=== PATIENT | female | born 1950 | race Asian ===

== ENCOUNTER 2016-11-22 16:43 | Emergency (ER) | payer OTHER ==
[~2016-11-22] VITALS: Ht 152.4 cm; Wt 159.0 kg
[~2016-11-22 16:43] MED LIST: ADV100 IH; ALBU8.5H IH; CALC-6 PO; FERR-72 PO; INSU100C3 SQ; INSU100C4 SQ
[2016-11-22] MEDS ORDERED: LOSA50TA37 PO (17:22)
[2016-11-22] MEDS ORDERED: METF500T4 PO (17:23)
[2016-11-22] MEDS ORDERED: AMLO-511 PO (17:23)
[2016-11-22] MEDS ORDERED: PROZ10 PO (17:23)
[2016-11-22] MEDS ORDERED: TRAM50TA4 PO (17:23)
[2016-11-22 17:32] LABS: GLUCOSE,POINT OF CARE 247 MG/DL (70-110)
[2016-11-22 19:48] LABS: BASOPHILS % (AUTO) 0.6 % (0.0-2.0); HEMATOCRIT 41.6 % (36-46); HEMOGLOBIN 13.5 g/dL (12.0-16.0); LYMPHOCYTES # (AUTO) 1.1 K/uL (1.0-4.8); LYMPHOCYTES % (AUTO) 11.4 % (22.0-44.0); MEAN CORPUSCULAR HGB CONC 32.5 G/dL (31.0-37.0); MEAN CORPUSCULAR VOLUME 86 fL (80-100); MONOCYTES # (AUTO) 1.2 K/uL (0.1-1.0); MONOCYTES % (AUTO) 12.6 % (2.0-9.0); NEUTROPHILS % (AUTO) 72.4 % (40.0-70.0); PLATELET COUNT (AUTO) 246 K/uL (150-450); RED BLOOD CELL COUNT(AUTO) 4.82 MIL/uL (4.00-5.20); WHITE BLOOD COUNT (AUTO) 9.6 K/uL (4.5-11.0)
[2016-11-22 19:55] LABS: INFLUENZA TYPE B POSITIVE FOR TYPE B (NEGATIVE)
[2016-11-22] MEDS ORDERED: OSELTAMIVIR PHOSPHATE 75 MG CAPSULE PO ONE (20:15)
[2016-11-22] MEDS ORDERED: BENZONATATE 100 MG CAPSULE PO ONE (20:15)
[2016-11-22] MEDS ORDERED: GuaiFENesin/CODEINE [SUGAR FREE] 200-20MG/10 ML SYRUP UDCUP PO ONE (20:15)
[2016-11-22] MEDS ORDERED: ACETAMINOPHEN 500 MG TABLET PO ONE (20:15)
[2016-11-22 20:34] LABS: CALCIUM, TOTAL 9.2 mg/dL (8.8-10.5); CREATININE 1.49 mg/dL (0.60-1.30); POTASSIUM 4.1 mmol/L (3.5-5.1)
[2016-11-22 20:56] VITALS: BP 127/66
== END 2016-11-22 20:57 | disposition home or self-care (01) ==
LOC: EMS 16:48
DX: J10.1 Influenza due to other identified influenza virus with other respiratory manifestations (principal); E11.65 Type 2 diabetes mellitus with hyperglycemia; E78.00 Pure hypercholesterolemia, unspecified; I10 Essential (primary) hypertension; J45.909 Unspecified asthma, uncomplicated; Z79.82 Long term (current) use of aspirin
CPT/HCPCS: 82962; 87804; 99285

== ENCOUNTER 2018-11-08 22:35 | Emergency (ER) | payer OTHER ==
[~2018-11-08] VITALS: Ht 152.4 cm; Wt 136.4 kg
[~2018-11-08 22:35] MED LIST changes: -ALBU8.5H IH; +ALBU8.5H8 IH; +AMLO-511 PO; +LOSA50TA64 PO; +METF-960 PO; +PROZ10 PO; +TRAM50TA4 PO
[2018-11-08 22:43] LABS: GLUCOSE,POINT OF CARE 227 MG/DL (70-110)
[2018-11-09] MEDS ORDERED: MethylPREDNISolone SOD SUCC 125 MG/2 ML VIAL IM ONE
[2018-11-09] MEDS ORDERED: ALBUTEROL SULFATE 2.5 MG/0.5 ML NEB SOLUTION NEB ONE
[2018-11-09] MEDS ORDERED: IPRATROPIUM BROMIDE 0.5 MG/2.5 ML NEB SOLUTION NEB ONE
[2018-11-09] MEDS ORDERED: GuaiFENesin/D-METHORPHAN [SUGAR-FREE] 200-20MG/10 ML SYRUP UDCUP PO ONE
[2018-11-09] MEDS ORDERED: ACETAMINOPHEN/CODEINE 300-30 MG TABLET PO ONE
[2018-11-09 00:12] LABS: BASOPHILS % (AUTO) 0.8 % (0.0-2.0); EOSINOPHILS % (AUTO) 3.6 % (1.0-6.0); HEMATOCRIT 44.1 % (36-46); HEMOGLOBIN 15.1 g/dL (12.0-16.0); LYMPHOCYTES # (AUTO) 1.7 K/uL (1.0-4.8); LYMPHOCYTES % (AUTO) 19.2 % (22.0-44.0); MEAN CORPUSCULAR HEMOGLOBIN 30.5 pg (26.0-34.0); MEAN CORPUSCULAR HGB CONC 34.2 G/dL (31.0-37.0); MEAN CORPUSCULAR VOLUME 89 fL (80-100); MONOCYTES # (AUTO) 0.8 K/uL (0.1-1.0); MONOCYTES % (AUTO) 8.7 % (2.0-9.0); NEUTROPHILS % (AUTO) 67.7 % (40.0-70.0); PLATELET COUNT (AUTO) 228 K/uL (150-450); RED BLOOD CELL COUNT(AUTO) 4.93 MIL/uL (4.00-5.20)
[2018-11-09 00:22] LABS: CALCIUM, TOTAL 9.1 mg/dL (8.8-10.5); CREATININE 1.46 mg/dL (0.60-1.30)
[2018-11-09 00:28] LABS: ALBUMIN 2.3 g/dL (3.4-5.0); BILIRUBIN,TOTAL 0.3 mg/dL (0.1-1.0); TOTAL PROTEIN, SERUM 7.1 g/dL (6.4-8.2)
[2018-11-09 01:09] VITALS: BP 149/85
[2018-11-09 01:16] LABS: INFLUENZA TYPE A NEGATIVE FOR TYPE A (NEGATIVE); INFLUENZA TYPE B NEGATIVE FOR TYPE B (NEGATIVE)
== END 2018-11-09 01:34 | disposition home or self-care (01) ==
LOC: EMS 22:36
DX: J45.901 Unspecified asthma with (acute) exacerbation (principal); E11.65 Type 2 diabetes mellitus with hyperglycemia; J02.9 Acute pharyngitis, unspecified; I10 Essential (primary) hypertension; E78.00 Pure hypercholesterolemia, unspecified; E11.9 Type 2 diabetes mellitus without complications; Z79.4 Long term (current) use of insulin; Z79.899 Other long term (current) drug therapy; J45.909 Unspecified asthma, uncomplicated
CPT/HCPCS: 36415; 71045; 80053; 82962; 84484; 85025; 87804; 94640; 96372; 99284; J2930

== ENCOUNTER 2018-12-09 20:36 | Emergency (ER) | payer OTHER ==
[~2018-12-09] VITALS: Ht 152.4 cm; Wt 136.4 kg
[~2018-12-09 20:36] MED LIST changes: -LOSA50TA64 PO
[2018-12-09] MEDS ORDERED: IPRATROPIUM BROMIDE 0.5 MG/2.5 ML NEB SOLUTION NEB ONE (21:00)
[2018-12-09] MEDS ORDERED: ALBUTEROL SULFATE 5 MG/ML 20 ML NEB SOLN [BULK] NEB ONE (21:00)
[2018-12-09] MEDS ORDERED: 0.9% SODIUM CHLORIDE 15 ML NEB SOLUTION NEB ONE (21:18)
[2018-12-09 22:40] LABS: BASOPHILS % (AUTO) 1.4 % (0.0-2.0); HEMATOCRIT 42.3 % (36-46); LYMPHOCYTES # (AUTO) 4.2 K/uL (1.0-4.8); LYMPHOCYTES % (AUTO) 36.1 % (22.0-44.0); MEAN CORPUSCULAR HEMOGLOBIN 29.5 pg (26.0-34.0); MEAN CORPUSCULAR VOLUME 89 fL (80-100); MONOCYTES # (AUTO) 0.4 K/uL (0.1-1.0); MONOCYTES % (AUTO) 3.3 % (2.0-9.0); NEUTROPHILS # (AUTO) 6.6 K/uL (1.8-7.7); NEUTROPHILS % (AUTO) 57.2 % (40.0-70.0); PLATELET COUNT (AUTO) 248 K/uL (150-450); RED BLOOD CELL COUNT(AUTO) 4.74 MIL/uL (4.00-5.20)
[2018-12-09 22:54] LABS: CALCIUM, TOTAL 9.1 mg/dL (8.8-10.5); CREATININE 1.31 mg/dL (0.60-1.30); POTASSIUM 3.5 mmol/L (3.5-5.1)
[2018-12-09 22:58] LABS: ALBUMIN 2.6 g/dL (3.4-5.0); BILIRUBIN,TOTAL 0.4 mg/dL (0.1-1.0); TOTAL PROTEIN, SERUM 7.2 g/dL (6.4-8.2)
[2018-12-10] MEDS ORDERED: PredniSONE 20 MG TABLET PO ONE (01:45)
[2018-12-10 01:50] VITALS: BP 134/77
== END 2018-12-10 02:02 | disposition home or self-care (01) ==
LOC: EMS 20:37
DX: J45.901 Unspecified asthma with (acute) exacerbation (principal); J44.9 Chronic obstructive pulmonary disease, unspecified; I10 Essential (primary) hypertension; E78.00 Pure hypercholesterolemia, unspecified; E11.9 Type 2 diabetes mellitus without complications; F32.9 Major depressive disorder, single episode, unspecified; Z79.4 Long term (current) use of insulin
CPT/HCPCS: 36415; 71045; 80053; 83880; 84484; 85025; 87040; 93005; 94644; 99285; J7512

== ENCOUNTER 2022-10-29 19:44 | Emergency (ER) | payer OTHER ==
[~2022-10-29] VITALS: Ht 157.5 cm; Wt 134.1 kg
[~2022-10-29 19:44] MED LIST changes: -ADV100 IH; +AMLO-257 PO; -AMLO-511 PO; +FLUO10CA24 PO; +FLUT1DIS4 IH; +METF-1211 PO; -METF-960 PO; -PROZ10 PO; +TRAM-559 PO; -TRAM50TA4 PO
[2022-10-29 20:06] LABS: GLUCOMETER DEV NAME(LOC) ERT.5; GLUCOSE,POINT OF CARE 492 MG/DL (70-110)
[2022-10-29] MEDS ORDERED: SODIUM CHLORIDE 0.9% 1,000 ML IV ONE (20:30)
[2022-10-29 21:35] LABS: BASOPHILS % (AUTO) 0.7 % (0.0-2.0); EOSINOPHILS % (AUTO) 2.8 % (1.0-6.0); HEMATOCRIT 38.3 % (36-46); HEMOGLOBIN 12.6 g/dL (12.0-16.0); LYMPHOCYTES # (AUTO) 2.3 K/uL (1.0-4.8); LYMPHOCYTES % (AUTO) 40.8 % (22.0-44.0); MEAN CORPUSCULAR VOLUME 88 fL (80-100); MONOCYTES # (AUTO) 0.5 K/uL (0.1-1.0); MONOCYTES % (AUTO) 8.9 % (2.0-9.0); NEUTROPHILS # (AUTO) 2.7 K/uL (1.8-7.7); NEUTROPHILS % (AUTO) 46.8 % (40.0-70.0); PLATELET COUNT (AUTO) 215 K/uL (150-450); RED BLOOD CELL COUNT(AUTO) 4.35 MIL/uL (4.00-5.20); RED CELL DISTRIBUTION WIDTH 14.6 % (11.5-14.5)
[2022-10-29 22:14] LABS: ACETONE,BLOOD NEGATIVE (NEGATIVE)
[2022-10-29 22:16] LABS: ALANINE AMINOTRANSFERASE 24 U/L (12-78); ALBUMIN 3.1 g/dL (3.4-5.0); ALKALINE PHOSPHATASE 87 U/L (46-116); ANION GAP 10 mmol/L (8-16); ASPARTATE AMINOTRANSFERASE 26 U/L (15-37); BILIRUBIN,TOTAL 0.3 mg/dL (0.1-1.0); CALCIUM, TOTAL 9.8 mg/dL (8.8-10.5); CARBON DIOXIDE 26 mmol/L (22-29); CHLORIDE 93 mmol/L (98-107); CREATININE 2.09 mg/dL (0.60-1.30); GLOMERULAR FILTR. RATE CALC 23 mL/min (>60); LIPASE 349 U/L (73-393); POTASSIUM 3.8 mmol/L (3.5-5.1); SODIUM SERUM 129 mmol/L (136-145); TOTAL PROTEIN, SERUM 8.5 g/dL (6.4-8.2); UREA NITROGEN, BLOOD 49 mg/dL (7-18)
[2022-10-29 22:30] LABS: GLUCOSE,RANDOM 488 mg/dL (70-110)
[2022-10-29] MEDS ORDERED: INSULIN REGULAR, HUMAN 100 UNITS/ML IVP ONE (22:45)
[2022-10-29 23:36] LABS: GLUCOSE,POINT OF CARE 383 MG/DL (70-110)
[2022-10-30 00:51] VITALS: BP 107/58
[2022-10-30 00:51] LABS: GLUCOSE,POINT OF CARE 372 MG/DL (70-110)
== END 2022-10-30 01:53 | disposition home or self-care (01) ==
LOC: EMS 19:46
DX: E11.65 Type 2 diabetes mellitus with hyperglycemia (principal); N28.9 Disorder of kidney and ureter, unspecified; M19.90 Unspecified osteoarthritis, unspecified site; J45.909 Unspecified asthma, uncomplicated; J44.9 Chronic obstructive pulmonary disease, unspecified; F32.A Depression, unspecified; E78.00 Pure hypercholesterolemia, unspecified; I10 Essential (primary) hypertension; Z98.890 Other specified postprocedural states; Z91.14 Patient's other noncompliance with medication regimen
CPT/HCPCS: 99284; 96374; 96361; 80053; 82009; 83690; 84484; 85025; 93005; 82962; J1815; J7030

== ENCOUNTER 2023-07-16 13:18 | Emergency (ER) | payer OTHER ==
[~2023-07-16] VITALS: Ht 152.4 cm; Wt 127.3 kg
[2023-07-16] MEDS ORDERED: ACET-2247 PO (13:23)
[2023-07-16 13:28] VITALS: TEMP 99.8
[2023-07-16 13:58] LABS: COVID AG,FIA SOURCE NASAL SWAB
[2023-07-16 14:05] LABS: INFLUENZA TYPE A NEGATIVE FOR TYPE A (NEGATIVE); SARS-COV2 (COVID) ANTIGEN,FIA Negative (Negative)
[2023-07-16 14:13] VITALS: BP 153/85; PULSE 106; RESP 18
[2023-07-16] MEDS ORDERED: ACETAMINOPHEN 500 MG TABLET PO ONE (14:45)
[2023-07-16 15:09] LABS: INFLUENZA TYPE B POSITIVE FOR TYPE B (NEGATIVE)
[2023-07-16] MEDS ORDERED: IBUP-1492 PO (15:09)
== END 2023-07-16 15:21 | disposition home or self-care (01) ==
LOC: EMS 13:28
DX: J10.1 Influenza due to other identified influenza virus with other respiratory manifestations (principal); M19.90 Unspecified osteoarthritis, unspecified site; J44.9 Chronic obstructive pulmonary disease, unspecified; F32.A Depression, unspecified; E11.9 Type 2 diabetes mellitus without complications; E78.00 Pure hypercholesterolemia, unspecified; I10 Essential (primary) hypertension; Z98.890 Other specified postprocedural states; Z20.822 Contact with and (suspected) exposure to COVID-19
CPT/HCPCS: 82962; 87804; 99283

== ENCOUNTER 2024-04-10 23:25 | Emergency (ER) | payer OTHER ==
[~2024-04-10] VITALS: Ht 149.9 cm; Wt 127.3 kg
[~2024-04-10 23:25] MED LIST changes: +ACET-2247 PO; +IBUP-1492 PO; -TRAM-559 PO; +TRAM50TA5 PO
[2024-04-11 00:09] LABS: BASOPHILS % (AUTO) 0.7 % (0.0-2.0); EOSINOPHILS % (AUTO) 3.2 % (1.0-6.0); HEMATOCRIT 37.9 % (36-46); HEMOGLOBIN 12.4 g/dL (12.0-16.0); LYMPHOCYTES # (AUTO) 2.2 K/uL (1.0-4.8); LYMPHOCYTES % (AUTO) 27.7 % (22.0-44.0); MEAN CORPUSCULAR HEMOGLOBIN 29.1 pg (26.0-34.0); MEAN CORPUSCULAR HGB CONC 32.8 G/dL (31.0-37.0); MEAN CORPUSCULAR VOLUME 89 fL (80-100); MONOCYTES # (AUTO) 0.9 K/uL (0.1-1.0); MONOCYTES % (AUTO) 11.6 % (2.0-9.0); NEUTROPHILS # (AUTO) 4.6 K/uL (1.8-7.7); NEUTROPHILS % (AUTO) 56.8 % (40.0-70.0); PLATELET COUNT (AUTO) 257 K/uL (150-450); RED BLOOD CELL COUNT(AUTO) 4.27 MIL/uL (4.00-5.20); RED CELL DISTRIBUTION WIDTH 14.4 % (11.5-14.5)
[2024-04-11 00:22] LABS: CREATININE 2.43 mg/dL (0.60-1.30); POTASSIUM 3.9 mmol/L (3.5-5.1)
[2024-04-11 03:38] LABS: APPEARANCE,URINE CLEAR (CLEAR); BILIRUBIN,URINE NEGATIVE (NEGATIVE); COLOR,URINE LIGHT YELLOW (YELLOW); GLUCOSE, URINE (UA) 150-200 mg/dL (NEGATIVE); KETONES,URINE NEGATIVE (NEGATIVE); LEUKOCYTE ESTERASE ,URINE SMALL (NEGATIVE); NITRATE,URINE NEGATIVE (NEGATIVE); OCCULT BLOOD,URINE SMALL (NEGATIVE); PH,URINE 5.5 (5.0-8.0); PROTEIN,URINE 30-70 mg/dL (NEGATIVE); SPECIFIC GRAVITIY, URINE 1.013 (1.003-1.030); UROBILINOGEN,URINE <=1.0 mg/dL (<=1.0)
[2024-04-11 03:52] LABS: BACTERIA,URINE Moderate /HPF (None Seen); SQUAMOUS EPITHELIAL CELL,UR Few /LPF (None Seen)
[2024-04-11 04:00] VITALS: BP 132/77; PULSE 74; RESP 18; TEMP 98.3
[2024-04-11] MEDS ORDERED: CEPH-558 PO (04:04)
[2024-04-11] MEDS ORDERED: PHEN-674 PO (04:04)
== END 2024-04-11 04:35 | disposition home or self-care (01) ==
LOC: EMS 04-11 00:03
DX: N39.0 Urinary tract infection, site not specified (principal); E11.65 Type 2 diabetes mellitus with hyperglycemia; N28.9 Disorder of kidney and ureter, unspecified; J44.9 Chronic obstructive pulmonary disease, unspecified; E11.9 Type 2 diabetes mellitus without complications; I10 Essential (primary) hypertension; Z79.4 Long term (current) use of insulin
CPT/HCPCS: 80048; 81001; 82962; 85025; 87086; 87186; 99283

== ENCOUNTER 2025-03-10 16:43 | Emergency (ER) | payer OTHER ==
[~2025-03-10] VITALS: Ht 154.9 cm; Wt 127.3 kg
[~2025-03-10 16:43] MED LIST changes: +CEPH-558 PO; +FLUT1BLS5 IH; -FLUT1DIS4 IH; +PHEN-674 PO
[2025-03-10] MEDS ORDERED: ADAL40SY SQ (17:02)
[2025-03-10] MEDS ORDERED: ROSU40TA88 PO (17:02)
[2025-03-10] MEDS ORDERED: INSU100I34 SQ (17:02)
[2025-03-10] MEDS ORDERED: GABA-529 PO (17:02)
[2025-03-10] MEDS ORDERED: LOSA100T59 PO (17:02)
[2025-03-10] MEDS ORDERED: ALBU18HF12 IH (17:02)
[2025-03-10] MEDS ORDERED: CHLO25TA3 PO (17:02)
[2025-03-10] MEDS ORDERED: SULF500T8 PO (17:02)
[2025-03-10] MEDS ORDERED: CHOL200059 PO (17:02)
[2025-03-10] MEDS ORDERED: FLUT12AE7 IH (17:02)
[2025-03-10 17:03] VITALS: BP 145/69; PULSE 92; RESP 18; TEMP 98.2; O2SAT 100
[2025-03-10 17:06] LABS: GLUCOMETER DEV NAME(LOC) ER.7; GLUCOSE,POINT OF CARE 215 MG/DL (70-110)
[2025-03-10] MEDS: ONDANSETRON 4 MG TABLET PO ONE (18:43)
[2025-03-10] MEDS: ACETAMINOPHEN 500 MG TABLET PO ONE (18:43)
[2025-03-10] MEDS: MECLIZINE HCL 25 MG TABLET PO ONE (18:43)
[2025-03-10 19:06] LABS: BASOPHILS % (AUTO) 1.2 % (0.0-2.0); EOSINOPHILS % (AUTO) 5.6 % (1.0-6.0); HEMATOCRIT 41.4 % (36-46); LYMPHOCYTES # (AUTO) 2.9 K/uL (1.0-4.8); LYMPHOCYTES % (AUTO) 34.3 % (22.0-44.0); MEAN CORPUSCULAR HGB CONC 33.7 G/dL (31.0-37.0); MEAN CORPUSCULAR VOLUME 89 fL (80-100); MONOCYTES # (AUTO) 0.8 K/uL (0.1-1.0); MONOCYTES % (AUTO) 10.1 % (2.0-9.0); NEUTROPHILS # (AUTO) 4.1 K/uL (1.8-7.7); NEUTROPHILS % (AUTO) 48.8 % (40.0-70.0); PLATELET COUNT (AUTO) 233 K/uL (150-450); RED BLOOD CELL COUNT(AUTO) 4.66 MIL/uL (4.00-5.20); RED CELL DISTRIBUTION WIDTH 15.1 % (11.5-14.5); WHITE BLOOD COUNT (AUTO) 8.4 K/uL (4.5-11.0)
[2025-03-10 19:14] LABS: ANION GAP 8 mmol/L (8-16); CARBON DIOXIDE 24 mmol/L (22-29); CHLORIDE 106 mmol/L (98-107); CREATININE 2.17 mg/dL (0.60-1.30); GLOMERULAR FILTR. RATE CALC 22 mL/min (>60); GLUCOSE,RANDOM 185 mg/dL (70-110); POTASSIUM 3.8 mmol/L (3.5-5.1); SODIUM SERUM 138 mmol/L (136-145); UREA NITROGEN, BLOOD 29 mg/dL (7-18)
[2025-03-10 19:19] LABS: CALCIUM, TOTAL 11.8 mg/dL (8.8-10.5)
[2025-03-10 19:24] LABS: TROPONIN I-HIGH SENSITIVITY 23 ng/L (<51)
[2025-03-10] MEDS ORDERED: SODIUM CHLORIDE 0.9% 1,000 ML IV ONE (19:30)
== END 2025-03-10 19:40 | disposition admitted as inpatient to this hospital (09) ==
LOC: EMS 16:44
DX: S00.03XA Contusion of scalp, initial encounter (principal); E86.0 Dehydration; I10 Essential (primary) hypertension; E83.52 Hypercalcemia; E11.65 Type 2 diabetes mellitus with hyperglycemia; E78.00 Pure hypercholesterolemia, unspecified; J44.89 Other specified chronic obstructive pulmonary disease; N17.9 Acute kidney failure, unspecified; Z79.4 Long term (current) use of insulin; Z79.51 Long term (current) use of inhaled steroids; Z79.899 Other long term (current) drug therapy; W22.8XXA Striking against or struck by other objects, initial encounter; Y93.89 Activity, other specified; Y92.89 Other specified places as the place of occurrence of the external cause; Y99.8 Other external cause status
CPT/HCPCS: 99285; 70450; 71045; 80048; 82962; 84484; 85025; 36415; 93005; Q0162